=== PATIENT | male | born 1980 | race Caucasian/White ===

== ENCOUNTER 2022-08-29 12:15 | Emergency (ER) | payer OTHER ==
[~2022-08-29] VITALS: Ht 177.8 cm; Wt 74.8 kg
[2022-08-29] MEDS ORDERED: GENT.3OPSO LEFTEYE (15:02)
== END 2022-08-29 15:15 | disposition home or self-care (01) ==
LOC: ER 12:15
DX: S05.02XA Injury of conjunctiva and corneal abrasion without foreign body, left eye, initial encounter (principal); W45.8XXA Other foreign body or object entering through skin, initial encounter
CPT/HCPCS: 99284-25; A9270